=== PATIENT | female | born 1960 | race Caucasian/White ===

== ENCOUNTER → 2016-06-29 | Outpatient (CLI) | payer MEDICARE, OTHER ==
[~2016-06-29] MED LIST: ADULT LOW DOSE81 MG PO; ALKA-SELTZER H1 EAC1 PO; AMBIEN10 MG PO; BACTROBAN OINT22 GM TD; BENTYL20 MG PO; CALCI-CHEW500 MG PO; CALCIUM CARBONATE PO; CARAFATE SU100 MG/ML PO; CELLCEPT200 MG/1 M PO; COLACE 100MG C100 MG PO; EFFEXOR XR75 MG PO; EFFIENT10 MG PO; EUCERIN CREME57 GM TOP; FLONASE 0.05% N16 GM; FML 0.1% OP SUSP5 ML OU; FORTEO 250250 MCG/ML SC; GAVISCON LIQUI355 ML PO; GAVISCON PO; LASIX40 MG PO; LEVOTHYROXINE50 MCG PO; LINZESS290 MCG PO; LIPITOR TAB 1010 MG PO; LYRICA50 MG PO; METOPROLOL SUCC25 MG GT; MULTIVITAMINS1 EAC1 GT; OXYCODONE HCL10 MG PO; PATANOL OP SOLN5 ML OU; PERCOCET 10-321 EACH PO; PHENERGAN 25 MG25 M1 PO; PLAVIX 75 MG TA75 MG GT; POTASSIUM20 MEQ/15 PO; PROGRAF1 MG PO; PROTONIX40 MG PO; REFRESH CLASSI1 EACH OP; SOTALOL80 MG GT; SYNTHROID 150150 MCG PO; TRAMADOL HCL50 MG PO; TRAZODONE HCL100 MG PO; UNASYN IV; VESICARE10 MG PO; VITAFOL-OB+DHA1 EACH PO; VITAMIN B-1000 MCG/M IM; VITAMIN B-12100 MC1 GT; VITAMIN B-12100 MCG PO; XARELTO15 MG GT; ZANTAC300 MG PO; ZINC SULFATE220 M1 PO
== END ==
LOC: KOH-I 06-21 14:00
DX: S09.93XA Unspecified injury of face, initial encounter (principal); I73.9 Peripheral vascular disease, unspecified; M79.89 Other specified soft tissue disorders; W19.XXXA Unspecified fall, initial encounter
CPT/HCPCS: 70486; 93925

== ENCOUNTER 2016-07-23 19:33 | Inpatient (IN) | payer MEDICARE, OTHER ==
[~2016-07-23] VITALS: Ht 154.9 cm; Wt 57.3 kg
[~2016-07-23 19:33] MED LIST changes: -BACTROBAN OINT22 GM TD; -FLONASE 0.05% N16 GM; -METOPROLOL SUCC25 MG GT; -PLAVIX 75 MG TA75 MG GT; -SOTALOL80 MG GT; -UNASYN IV; -VITAMIN B-12100 MC1 GT; -XARELTO15 MG GT
[2016-07-23] MEDS ORDERED: VITAMIN B-12100 MC1 GT (20:53)
[2016-07-23] MEDS ORDERED: SOTALOL80 MG GT (21:06)
[2016-07-23] MEDS ORDERED: METOPROLOL SUCC25 MG GT (21:08)
[2016-07-23] MEDS ORDERED: PLAVIX 75 MG TA75 MG GT (21:08)
[2016-07-23] MEDS ORDERED: XARELTO15 MG GT (21:09)
[2016-07-24 01:32] LABS: HEMOGLOBIN 9.1 gm/dl (12.3-15.3); RED BLOOD COUNT 3.1 M/UL (4.00-5.10); WHITE BLOOD COUNT 6.2 K/UL (4.5-11.0)
[2016-07-24 01:47] LABS: BUN/CREATININE RATIO 37 (0-10)
[2016-07-27 04:58] LABS: BUN/CREATININE RATIO 24 (0-10)
[2016-07-27] MEDS ORDERED: FLONASE 0.05% N16 GM (13:07)
[2016-07-27] MEDS ORDERED: FORTEO 250250 MCG/ML SC (18:45)
[2016-07-28 03:54] LABS: HEMOGLOBIN 8.1 gm/dl (12.3-15.3); RED BLOOD COUNT 2.77 M/UL (4.00-5.10); WHITE BLOOD COUNT 6.1 K/UL (4.5-11.0)
[2016-07-28 04:20] LABS: BUN/CREATININE RATIO 29 (0-10)
[2016-07-29 06:06] LABS: BUN/CREATININE RATIO 29 (0-10)
--- NOTE | 2016-07-29 06:18 | NUR ---
0614 lab called to report a K+ level of 5.5, Dr. Villaseñor is paged at [phone] to report the level, no new orders noted at this time.
[2016-07-30 05:38] LABS: BUN/CREATININE RATIO 34 (0-10)
--- NOTE | 2016-07-30 21:34 | NUR ---
2129 pt more confused and aggitated and agressive pt is thinking she has left her belonging in another room and attempt to go into a patients room and remove items. pt is informed that she can not go into other rooms and take things. I spoke with patients reguarding patients behavior and he informs me that she the patient does behave like this at home so the behavior is not new. will continue to monitor patient.
[2016-07-31 06:22] LABS: HEMOGLOBIN 8.1 gm/dl (12.3-15.3); RED BLOOD COUNT 2.82 M/UL (4.00-5.10); WHITE BLOOD COUNT 4.4 K/UL (4.5-11.0)
[2016-08-02 03:59] LABS: HEMOGLOBIN 8.5 gm/dl (12.3-15.3)
[2016-08-02 04:15] LABS: BUN/CREATININE RATIO 25 (0-10)
[2016-08-03] MEDS ORDERED: UNASYN IV (14:19)
[2016-08-03] MEDS ORDERED: BACTROBAN OINT22 GM TD (14:19)
== END 2016-08-03 13:30 | disposition home health service (06) | DRG 623 ==
LOC: MED SURG 4 19:44 → PROG CARE 19:44 → MED SURG 4 07-26 23:07
PROVIDERS: Emergency Medicine; Internal Medicine; Legal Medicine; Surgery; ADMIT Internal Medicine
PROC: B5131ZA Fluoroscopy of Right Jugular Veins using Low Osmolar Contrast, Guidance (ICD-10-PCS; principal; 2016-07-25 12:30)
PROC: 05HM33Z Insertion of Infusion Device into Right Internal Jugular Vein, Percutaneous Approach (ICD-10-PCS; principal; 2016-07-25 12:30)
PROC: 0JBR0ZZ Excision of Left Foot Subcutaneous Tissue and Fascia, Open Approach (ICD-10-PCS; 2016-07-27)
PROC: XHRPXL2 Replacement of Skin using Porcine Liver Derived Skin Substitute, External Approach, New Technology Group 2 (ICD-10-PCS; 2016-07-27)
DX: E10.621 Type 1 diabetes mellitus with foot ulcer (principal); I96 Gangrene, not elsewhere classified; Z94.83 Pancreas transplant status; Z94.0 Kidney transplant status; J81.1 Chronic pulmonary edema; L97.529 Non-pressure chronic ulcer of other part of left foot with unspecified severity; G92 Toxic encephalopathy; I99.8 Other disorder of circulatory system; I95.2 Hypotension due to drugs; K59.00 Constipation, unspecified; B95.2 Enterococcus as the cause of diseases classified elsewhere; E87.5 Hyperkalemia; B96.1 Klebsiella pneumoniae [K. pneumoniae] as the cause of diseases classified elsewhere; I48.2 Chronic atrial fibrillation; L53.9 Erythematous condition, unspecified; G62.89 Other specified polyneuropathies; M81.8 Other osteoporosis without current pathological fracture; I25.10 Atherosclerotic heart disease of native coronary artery without angina pectoris; E03.9 Hypothyroidism, unspecified; E78.5 Hyperlipidemia, unspecified; F41.8 Other specified anxiety disorders; E53.8 Deficiency of other specified B group vitamins; Z79.01 Long term (current) use of anticoagulants; Z95.0 Presence of cardiac pacemaker; Z79.899 Other long term (current) drug therapy; Z98.84 Bariatric surgery status; Z95.5 Presence of coronary angioplasty implant and graft; Z96.89 Presence of other specified functional implants; Z82.49 Family history of ischemic heart disease and other diseases of the circulatory system; Z86.39 Personal history of other endocrine, nutritional and metabolic disease; Z79.82 Long term (current) use of aspirin; Z88.8 Allergy status to other drugs, medicaments and biological substances; Z96.652 Presence of left artificial knee joint; Z96.642 Presence of left artificial hip joint; Z87.310 Personal history of (healed) osteoporosis fracture; R09.02 Hypoxemia
CPT/HCPCS: 36415; 70450; 70496; 71010; 73700; 77001; 80048; 80053; 83036; 83540; 83735; 84443; 85014; 85018; 85027; 85610; 85730; 87040; 87070; 87077; 87186; 87205; 93005; 94640; C1769; C1788; J0295; J0690; J0696; J1100; J1644; J1885; J2250; J2405; J2550; J2765; J2795; J3010; J3110; J3370; J7030; J7050; J7120; Q4133; Q9963

== ENCOUNTER → 2016-10-27 | Outpatient (CLI) | payer MEDICARE, OTHER ==
[~2016-10-27] MED LIST changes: +BACTROBAN OINT22 GM TD; +FLONASE 0.05% N16 GM; +METOPROLOL SUCC25 MG GT; +PLAVIX 75 MG TA75 MG GT; +SOTALOL80 MG GT; +UNASYN IV; +VITAMIN B-12100 MC1 GT; +XARELTO15 MG GT
== END ==
LOC: KOH-I 13:40
DX: M79.605 Pain in left leg (principal); R93.7 Abnormal findings on diagnostic imaging of other parts of musculoskeletal system
CPT/HCPCS: 73700